=== PATIENT | male | born 1975 | race Caucasian/White ===

== ENCOUNTER 2017-02-15 14:17 | Emergency (ER) | payer SELFPAY ==
[2017-02-15 14:54] LABS: Hematocrit 42.9 % (42.0-52.0); Hemoglobin 14.1 gm/dL (13.5-18.0); Mean Cell Volume 88.6 fl (78-100); Mean Corpuscular Hemoglobin 29.1 pg (27-31); Mean Corpuscular Hgb Conc 32.9 g/dl (32-36); Mean Platelet Volume 9.4 fl (6.0-9.5); Neutrophil # 5.7 K/mm3 (1.3-6.0); Neutrophil % 62.2 % (42-75.0); Platelet Count 252 K/mm3 (150-450); Red Blood Count 4.84 M/mm3 (4.7-6.0); Red Cell Distribution Width 12.7 % (11.5-14.0); White Blood Count 9.2 K/mm3 (4.0-10.5)
--- OUTSIDE RECORDS SUMMARY | 2017-02-15 15:00 | XMS REPORT | Continuity of Care Document ---
:1975 Author Organization [facility] ([facility]) Address [address] [place] [address] Phone [phone] Care Team Providers Name Role Phone Provider, No-Primary Care Primary Care Provider Unavailable Source Comments This disclosure is being made pursuant to the Care Everywhere program, applicable federal and state laws, and may not contain all informaitonavailable regarding this patient.[facility] ([facility]) Active Allergies and Adverse Reactions Allergen Noted Date Severity Reactions Comments Cefazolin Urticaria (Hives) Current Medications Not on file Active Problems Not on file Social History Tobacco Use Types Packs/Day Years Used Date Never Assessed Last Filed Vital Signs Vital Sign Reading Time Taken Blood Pressure 134/83 02/03/2008 12:27 PM CDT Pulse 85 02/03/2008 12:27 PM CDT Temperature 35.6 C (96.08 F) 02/03/2008 12:27 PM CDT Respiratory Rate - - Height - - Weight - - Body Mass Index - - Oxygen Saturation - - Plan of Care Health Maintenance Due Date Last Done Comments Hepatitis B Vaccine (1 of 3 - Primary Series) 1975 Tdap Vaccine 1988 Lipid Disorder Screening 1995 MMR Vaccine 1995 Td Vaccine 1995 Influenza Vaccine: Seasonal (#1) 04/24/2016 Results from Last 3 Months Not on file
--- NOTE | 2017-02-15 15:06 | ERNOTE ---
Chest Pain/Cardiac HPI Chief Complaint: Chest Pain Time Seen by Provider: 02/15/17 14:48 Source: patient Exam Limitations: no limitations Immunizations: IMMUNIZATION HX History of Influenza Vaccine No Hx Pneumococcal Vaccination No Allergies/Adverse Reactions: Allergies cefazolin sodium [From Anc] Allergy (Mild, Verified 02/15/17 14:30) Itching Home Medications: HOME MEDICATIONS Aspirin [Aspirin Enteric Coated] 81 mg PO DAILY 02/15/17 [Last Taken Unknown] Narrative: Patient had an episode of severe chest pain with nausea, diaphoresis, and arm pain five days ago that resolved after 15 minutes. after that he was exhausted and slept for a few hours. After the weekend (three days ago) he went to seen a organ tuner electronic (his aunt Flory Foster referred him) and had a stress test done. He was told that the stress test didn't show anything major but that he had a mild stress induced heart attack. 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 Date (Duration): 02/10/17 Timing: constant Severity/Quality: moderate, aching Location: central Chest Pain Radiation: no radiation Review of Systems - Review of Systems Constitutional: Absent: recent illness, fever EYE: Absent: double vision ENT: Absent: nose congestion, sore throat Respiratory: Absent: shortness of breath Cardiology: Present: See HPI, chest pain. Absent: palpitations Gastrointestinal/Abdominal: Absent: nausea, vomiting, diarrhea, abdominal pain Genitourinary: Present: no symptoms reported Musculoskeletal: Present: See HPI Skin: Absent: rash Neurological: Absent: headache, weakness, numbness - Patient's Past Medical History Patient History - Medical: Kidney stone Patient History - Cardiac/Respiratory: Myocardial Infarction Patient History - Cancer: No Hx of Cancer Patient History - Surgical Procedures: ENT Patient History - Other: None - Family History Father Family History - Cancer: Lung - Social History Living Situations: home Psych History: No pertinent hx Smoking Status: Current every day smoker Alcohol Use: rarely Drug Use: none - Immunizations Hx Pneumococcal Vaccination: No History of Influenza Vaccine: No Physical Exam - Physical Exam General Appearance: Present: wd/wn, alert, no apparent distress Ears, Nose, Throat: Present: normal pharynx Respiratory: Present: no respiratory distress, normal breath sounds, lungs clear , chest tenderness - midsternal, max over angle between head and body of sternum Cardiovascular/Chest: Present: regular rate, rhythm, no murmur Gastrointestinal/Abdominal: Present: nontender, nondistended, soft Neurological Exam: Present: alert, oriented, normal mood/affect Skin Exam: Present: normal color, warm/dry ED Progress - Results and Orders Patient's Lab Results:: I have reviewed the patient's lab results. - Vital Signs Patient's Vital Signs:: I have reviewed the patient's vital signs. Vital Signs: Vital Signs 02/15/17 14:31 Temperature 36.9 C Pulse Rate 71 Blood Pressure 144/74 O2 Sat by Pulse 97 Oximetry - EKG EKG: NSR, no ST T wave changes EKG read: Interp. by me - X-Ray X-Ray #1 X-Ray: chest - no acute findings Interpretation: Reviewed by me - Progress/Reassessment Chief Complaint: Chest Pain Progress Note-Subjective: 02/15/17 15:50 discussed results with patient history and exam more consistent with chest wall pain reviewed report from Cardiology office ( stress echo 02/12) offered pain meds patient declined Departure - Departure Clinical Impression: Acute chest wall pain Disposition: Home self-care Condition: Good Instructions: Chest Wall Pain, [id number] Additional Instructions: take over the counter ibuprofen as needed for pain Referrals: Flory Foster, BUILDING ILLUMINATING ENGINEER [[facility]] -
[2017-02-15 15:07] LABS: Prothrombin Time (Patient) 10.6 Seconds (9.4-11.4)
[2017-02-15 15:14] LABS: ALT 23 U/L (19-67); AST 24 U/L (0-48); Albumin * 3.9 gm/dl (3.4-5.0); Alkaline Phosphatase * 69 U/L (50-170); BUN/Creatinine Ratio 12.9 (9.0-21.6); Bilirubin, Total 0.3 mg/dL (0.0-1.1); Blood Urea Nitrogen 13 mg/dL (6-23); Ca. Corrected For Albumin 8.7 mg/dL (8.4-10.2); Calcium * 8.9 mg/dL (7.9-10.9); Carbon Dioxide 25.8 mmol/L (24-32.6); Chloride 106 mmol/L (97-106); Glucose * 77 mg/dL (70-110); Potassium 3.8 mmol/L (3.4-4.6); Sodium 142 mmol/L (132-142); Total Protein 6.9 gm/dL (6.2-8.2)
[2017-02-15 15:18] LABS: Troponin I Less than 0.017 ng/ml (0.00-0.10)
[2017-02-15 15:19] LABS: INR 1.02 INR (0.90-1.10); Partial Thrombolplastin Time 29.2 Seconds (24-32)
[2017-02-15 16:27] VITALS: BP 124/88
== END 2017-02-15 15:59 | disposition home or self-care (01) ==
LOC: ER 14:17
DX: R07.89 Other chest pain (principal); Z87.442 Personal history of urinary calculi; I25.2 Old myocardial infarction; F17.200 Nicotine dependence, unspecified, uncomplicated

== ENCOUNTER 2017-08-17 13:55 | Emergency (ER) | payer SELFPAY ==
[2017-08-17 14:38] LABS: Hematocrit 48.4 % (42.0-52.0); Hemoglobin 16.3 gm/dL (13.5-18.0); Mean Cell Volume 88.3 fl (78-100); Mean Corpuscular Hemoglobin 29.7 pg (27-31); Mean Corpuscular Hgb Conc 33.7 g/dl (32-36); Mean Platelet Volume 9.4 fl (6.0-9.5); Neutrophil # 17.2 K/mm3 (1.3-6.0); Neutrophil % 87.9 % (42-75.0); Platelet Count 288 K/mm3 (150-450); Red Blood Count 5.48 M/mm3 (4.7-6.0); Red Cell Distribution Width 12.7 % (11.5-14.0); White Blood Count 19.5 K/mm3 (4.0-10.5)
[2017-08-17 14:43] LABS: Anion Gap 16.3 mmol/L (6.8-13.8); BUN/Creatinine Ratio 7.8 (9.0-21.6); Calcium * 9.2 mg/dL (7.9-10.9); Carbon Dioxide 26.8 mmol/L (24-32.6); Estimated Creat Clear 88.2; Potassium 4.1 mmol/L (3.4-4.6)
[2017-08-17] MEDS ORDERED: ACETAMINOPHEN 325 MG TABLET PO ONE (15:02)
[2017-08-17] MEDS ORDERED: ONDANSETRON 4 MG TAB.RAPDIS PO ONE (15:02)
[2017-08-17] MEDS ORDERED: ONDANSETRON 4 MG TAB.RAPDIS ONE (15:05)
[2017-08-17] MEDS ORDERED: ACETAMINOPHEN 325 MG TABLET ONE (15:05)
--- NOTE | 2017-08-17 15:05 | ERNOTE ---
Medical Problem HPI - General Chief Complaint: Flu Symptoms Time Seen by Provider: 08/17/17 14:50 Source: patient Exam Limitations: no limitations - Immun/Allergies/Home Medications Immunizations: IMMUNIZATION HX History of Influenza Vaccine No Hx Pneumococcal Vaccination No Allergies/Adverse Reactions: Allergies cefazolin sodium [From Anc] Allergy (Mild, Verified 08/17/17 14:13) Itching Home Medications: HOME MEDICATIONS NK [No Home Medication] 08/17/17 [Last Taken Unknown] - History of Present History Narrative: Patient started to have flue like symptoms two days ago, fever, body aches, stuffy nose, postnasal drip, no cough, no shortness of breath. He works in construction. Date (Duration): 08/15/17 Review of Systems - Review of Systems Constitutional: Present: fever, chills. Absent: recent illness EYE: Absent: vision changes ENT: Present: nose congestion, nasal drainage. Absent: sore throat Respiratory: Absent: shortness of breath, cough Cardiology: Absent: chest pain Gastrointestinal/Abdominal: Present: See HPI, vomiting. Absent: nausea, diarrhea Genitourinary: Present: no symptoms reported Musculoskeletal: Present: other - genralized aches Skin: Absent: rash Neurological: Present: headache - slight. Absent: weakness, numbness - Patient's Past Medical History Patient History - Medical: Kidney stone Patient History - Cardiac/Respiratory: Myocardial Infarction - questionable Patient History - Cancer: No Hx of Cancer Patient History - Surgical Procedures: ENT Patient History - Other: None - Family History Father Family History - Cancer: Lung - Social History Living Situations: home Psych History: No pertinent hx Smoking Status: Current every day smoker Have you smoked in the past 12 months: Yes Alcohol Use: none Drug Use: none - Immunizations Hx Pneumococcal Vaccination: No History of Influenza Vaccine: No Physical Exam - Physical Exam General Appearance: Present: wd/wn, alert, no apparent distress Head Exam: Present: normal inspection, no evidence of injury Eye Exam: Normal inspection: bilateral, PERRL: bilateral, EOMI: bilateral Ears, Nose, Throat: Present: normal ENT inspection, normal pharynx Neck: Present: normal inspection, nontender, supple Respiratory: Present: no respiratory distress, normal breath sounds, no accessory muscle use, lungs clear Cardiovascular/Chest: Present: regular rate, rhythm, no murmur Gastrointestinal/Abdominal: Present: normal bowel sounds, nontender, nondistended, soft, no organomegaly Extremity Exam: Present: normal inspection Neurological Exam: Present: alert, oriented, normal mood/affect Skin Exam: Present: normal color, warm/dry ED Progress - Results and Orders Patient's Lab Results:: I have reviewed the patient's lab results. - Vital Signs Patient's Vital Signs:: I have reviewed the patient's vital signs. Vital Signs: Vital Signs 08/17/17 14:09 Temperature 38.3 C H Pulse Rate 101 H Respiratory 16 Rate Blood Pressure 144/76 O2 Sat by Pulse 98 Oximetry - X-Ray X-Ray #1 X-Ray: chest - no acute changes Interpretation: Interp. by me - Progress/Reassessment Chief Complaint: Flu Symptoms Progress Note-Subjective: 08/17/17 16:14 feeling a little better after tylenol, tolerated po Departure Clinical Impression: Flu-like symptoms - Departure Disposition: Home self-care Condition: Good Additional Instructions: if your symptoms do not improve over the next 2-3days or you have any additional symptoms return to the ER or follow up with your doctor Referrals: Gigi Arana DO [Staff Physician] -
[2017-08-17 16:18] VITALS: BP 123/77
== END 2017-08-17 16:25 | disposition home or self-care (01) ==
LOC: ER 13:55
DX: R50.9 Fever, unspecified (principal); R52 Pain, unspecified; F17.200 Nicotine dependence, unspecified, uncomplicated